=== PATIENT | female | born 1990 | race Caucasian/White ===

== ENCOUNTER 2016-05-29 19:12 | Inpatient (IN) | payer OTHER ==
[2016-05-29] VITALS (7 sets, daily range): BP systolic 110–128; BP diastolic 56–75
[~2016-05-29] VITALS: Ht 152.4 cm; Wt 69.4 kg
[~2016-05-29 19:12] MED LIST: ENDOCET 5-3251 EACH PO; MOTRIN800 MG PO; PREFERA-OB P1 TABLET PO
[2016-05-29 19:48] LABS: EOSINOPHIL (%) 0.4 % (0-5); EOSINOPHIL COUNT 0.1 K/uL (0-0.3); HEMATOCRIT 36.5 % (36.0-46.0); IMMATURE GRANULOCYTE (%) 0.3 % (0.0-0.7); IMMATURE GRANULOCYTE COUNT 0.5 K/uL; MCH 32.2 PG (29.0-34.0); MCHC 34.5 G/DL (30.0-36.0); MCV 93.4 FL (83-99); MEAN PLAT.VOLUME 11.6 uM^3 (9.5-12.4); MONOCYTE (%) 7.1 % (3-12); MONOCYTE COUNT 1.1 K/uL (0-0.8); NEUTROPHIL (%) 79.3 % (45-76); NEUTROPHIL COUNT 12.3 K/uL (1.8-6.4); PLATELET COUNT 182 K/uL (156-360); RBC DIS.WIDTH-CV 13.1 % (11.8-14.6); RBC DIS.WIDTH-SD 43.4 % (39-53); RED BLOOD COUNT 3.91 M/uL (3.80-5.20); WHITE BLOOD COUNT 15.5 K/uL (4.1-10.2)
[2016-05-30] VITALS (8 sets, daily range): BP systolic 95–131; BP diastolic 53–72
[2016-05-30] MEDS ORDERED: IBUPROFEN800 MG PO (00:26)
[2016-05-31 07:16] VITALS: BP 116/70
[2016-05-31] MEDS ORDERED: IBUPROFEN800 MG PO (09:49)
== END 2016-05-31 15:37 | disposition home or self-care (01) | DRG 775 ==
LOC: LDRP-OP 19:12 → 2WEST 19:13 → LDRP-OP 07-08 14:41
PROVIDERS: Midwife
PROC: 10E0XZZ Delivery of Products of Conception, External Approach (ICD-10-PCS; principal; 2016-05-29)
PROC: 3E0S3CZ (ICD-10-PCS; principal; 2016-05-29)
PROC: 10907ZC Drainage of Amniotic Fluid, Therapeutic from Products of Conception, Via Natural or Artificial Opening (ICD-10-PCS; principal; 2016-05-29)
PROC: 00HU33Z Insertion of Infusion Device into Spinal Canal, Percutaneous Approach (ICD-10-PCS; principal; 2016-05-29)
DX: O26.03 Excessive weight gain in pregnancy, third trimester (principal); Z37.0 Single live birth; Z3A.38 38 weeks gestation of pregnancy
CPT/HCPCS: 85025; C1755; J7120